=== PATIENT | female | born 1970 | race Caucasian/White ===

== ENCOUNTER 2024-05-17 16:50 | Inpatient (IN) | payer BC, SELFPAY ==
[2024-05-17] VITALS (16 sets, daily range): BP systolic 78–150; BP diastolic 67–110; BMI 25.4
--- NOTE | 2024-05-17 12:49 | ED.GENMED ---
History of Present Illness
General
Chief Complaint: Heart Rate Problem
Time Seen by Provider: 05/17/24 12:49
History of Present Illness
History of Present Illness:
TIME OF INITIAL ENCOUNTER:
HPI: Patient presents due to shortness of breath and palpitations started last night. Approximately 1 to 2 weeks ago, she had URI/flulike illness. Last evening she developed abrupt onset shortness of breath and palpitations. She went to see PMD
today and was found to be in rapid A-fib so was sent here for further evaluation and management. She has no history of A-fib. She denies any significant cough and cold medications.
EXAM:
GENERAL: Well appearing in no distress
HEENT: Moist oral mucosa
CARDIOVASCULAR: No murmurs, tachycardic heart rate, irregular rhythm, No chest wall tenderness
PULMONARY: No respiratory distress, breath sounds are clear and equal
ABDOMEN: Soft with no peritoneal signs, no tenderness
NEUROLOGIC: Excellent strength all extremities, no coordination deficits
PSYCHIATRIC: Appropriate mental status, normal insight and judgement
EXTREMITIES: Nontender, no edema, moves all extremities equally
SKIN: No rash, no lesions
NUMBER AND COMPLEXITY OF PROBLEMS ADDRESSED AT THE ENCOUNTER
� Chronic conditions affecting care: She is a smoker,
� Acute Exacerbation and/or Progression of Chronic Illness: This is an acute problem
� Differential Diagnosis includes: Viral syndrome, new onset rapid A-fib, thyroid disease, electrolyte abnormality, PE less likely
AMOUNT AND/OR COMPLEXITY OF DATA TO BE REVIEWED AND ANALYZED
� I performed an independent evaluation of and my interpretation is:
EKG: A-fib 156, normal axis, nonspecific ST abnormality in 2022, EKG was sinus rate of 78
CT: CT reviewed, I see no evidence of central PE
X-rays:
Laboratory Studies: White count 9.2, hemoglobin 15.6, troponin negative, electrolytes normal, COVID flu negative
Other:
� Review of other/old records: I reviewed records, the patient has been here in the past related to ureteral stones
� Clinical information was obtained by an independent historian: I spoke to at bedside
� Prescriptions/Medications Considered but not given:
� Further testing considered but not performed:
RISK OF COMPLICATIONS AND/OR MORBIDITY OR MORTALITY OF PATIENT MANAGEMENT
� Social determinants of health affecting care: Lives at home
� Discussion with other providers: I discussed case with Dr. Osorio who recommends against cardioversion in the Emergency Department. Dr. Quezada for admission
� Escalation of care including admission/observation vs risk of discharge considered: The patient arrived with heart rates in the 150s to 170s and new onset A-fib. She was given Cardizem bolus and then drip. Heart rate did
improve to the low 100s. D-dimer was obtained and was elevated�will send for CTA.
ANY OTHER UPDATES:
3 PM: Overall heart rate has improved. The patient appears comfortable.
Past History
Past History
ED Past Medical History: Other (Kidney stones)
ED Past Surgical History: Cholecystectomy, Gynecological (partial hysterectomy) and Orthopedic
Social History
Tobacco: Non-smoker
Alcohol: Occasional
Drug: None
Personal:
Living: with family
Employment: Employed ([employer])
Phy Exam
Physical Exam
Physical Exam:
See HPI
Course
Orders/Labs/Results
Orders:
Orders
05/17/24 12:39
Electrocardiogram (*1) Urgent
Reason for Study: Atrial Fibrillation
EKG- Treatment ONCE
05/17/24 12:57
Basic Metabolic Panel Urgent
COVID-19 Antigen Urgent
Source: Nasal Swab
Complete Blood Count/With Diff Urgent
Glycohemoglobin (HgbA1c) Urgent
Magnesium Urgent
TSH Reflex To Free T4 Urgent
Troponin I Urgent
Influenza A+B Rapid Molecular Urgent
PRAFUL Source: Nasal Swab
Specimen Description:
05/17/24 13:03
D-Dimer Urgent
05/17/24 13:39
Diltiazem HCl [Cardizem] 10 mg IV NOW STA
05/17/24 13:45
Diltiazem 125 mg/125 ml Nss [Cardizem] 125 mg in 125 ml IV PER PROTOCOL
Initial dose in mg/hr, then titrate:: 5
Titrate to keep:: Heart rate 80-100 bpm
Titrate by mg/hr:: 5 mg/hr
Frequency of titrations (minutes):: 15
Maximum dose in mg/hr:: 15
05/17/24 14:24
CT Chest PE Study Urgent
Comment:
Reason For Exam: sob high ddimer
05/17/24 Dinner
Cholesterol Lowering
At Your Request: Full Participation
Does patient need a safe tray?: No
Cholesterol Lowering: Sodium, 2 Gram
05/17/24 15:57
Admit/Transfer Patient As Directed
Co-Sign Provider:
Level of Care: Inpatient admission
Assign to:: IVU
Physician / Group: Noé Quezada
Diagnosis: new onset atrial fibrillation
Reason for Hospitalization: new onset atrial fibrillation
Expected length of stay greater than two midnights?: Yes
ELOS- Estimated Length of Stay in days: 3
I certify the patient meets the requirements for IP care: Yes
PRN Pain Medication Management As Directed
May give lesser potent ordered pain med per pt: Yes
preference::
Protocol:: Medication orders for pain may be administered in a
manner that supports deferring to patient preference
when the pt is:
- Requesting an ordered lesser potent pain medication.
Least to most potent pain medications are defined
as: acetaminophen < NSAID < tramadol < opioids
(morphine, oxycodone, hydromorphone).
- Requesting a lesser dose of the same medication IF
ORDERED.
- Requesting a less intrusive route of administration
if both routes are prescribed by the provider (PO <
IV).
05/17/24 15:58
Code Status As Directed
Resuscitation Status: Full Code
05/17/24 17:57
CARDIOLOGY CONSULT Routine
Consulting Provider: Jamshid Osorio
Was physician already notified: Yes
Activity As Directed
Activity Level: Ambulate
INT (Intravenous Needle Therapy) As Directed
Comment: maintain peripheral IV access
Intake/ Output As Directed
Frequency: Per unit guidelines
Vital Signs As Directed
Frequency: q4h
Weight As Directed
Frequency: Once
DX Deep Vein Thrombosis Video Routine
05/18/24 05:40
Cardiovascular Evaluation IN AM
Complete Blood Count/No Diff IN AM
Comprehensive Metabolic Panel IN AM
05/18/24 06:00
Echo 2D MMode Color/Doppler IN AM
Reason for Study: AFIB with RVR
Comment: tomorrow, once HR better controlled
Abnormal Lab Results
05/17/24 05/17/24
12:57 13:03
MCH 31.3 H pg
(27.0-31.0)
D-Dimer 1.05 H ug/mlFEU
(0.00-0.50)
Chloride 108 H mmol/L
(98-107)
Glucose 100 H mg/dl
(70-99)
Hemoglobin A1c 5.8 H %
(4.0-5.6)
05/17/24 12:57
05/17/24 12:57
Vital Signs
Pulse: 116
Initial and Last Documented VS:
Initial Vital Signs
Temp Pulse Resp BP Pulse Ox
36.6 C 88 20 145/104 97
05/17/24 12:45 05/17/24 12:45 05/17/24 12:45 05/17/24 12:45 05/17/24 12:45
Last Documented Vital Signs
Temp Pulse Resp BP Pulse Ox
36.7 C 110 18 136/99 96
05/19/24 03:43 05/19/24 03:43 05/19/24 03:43 05/19/24 03:43 05/19/24 03:43
*Critical Care Note
Total Time (30-74mins, 75-104mins- exclusive of procedures): Not Applicable
ED Attending Note
-
Portions of this chart may have been created with voice recognition software.� Occasional wrong word or��sound alike� substitutions may have occurred due to the inherent limitations of voice recognition software.
Discharge Plan
Departure
Patient Disposition: Admit
Date of Disposition: 05/17/24
Time of Disposition: 15:17
Presentation/result/management discussed w/ accepting MD/DO: Hospitalist
Discharge Problem:
Atrial fibrillation with RVR
Interventions
Interventions:
*Risk Screen - Suicide Last Done: 05/17/24 12:45
*General Assessment Last Done: 05/17/24 12:45
*Neglect/Abuse Screening Last Done: 05/17/24 12:45
ED- Fall Risk Assessment Last Done: 05/17/24 21:17
*ED COVID-19 Vaccine History Last Done: 05/17/24 12:45
*Nursing Disposition Last Done: 05/18/24 17:11
ED- Cardiac Assessment Last Done: 05/17/24 21:17
ED- Pulmonary Assessment Last Done: 05/17/24 13:07
Discharge Date and Time
Discharge Date/Time: 05/18/24 17:12
[2024-05-17 13:21] LABS: % Basophils 0.7 % (0-2); % Eosinophils 1.3 % (0-6); % Immature Granulocytes 0.3 % (0-0.5); % Neutrophils 60.7 % (42.2-75.2); Absolute Basophils 0.1 10^3/uL (0-0.2); Absolute Eosinophils 0.1 10^3/uL (0-0.7); Absolute Lymphocytes 2.9 10^3/uL (1.2-3.4); Absolute Monocytes 0.5 10^3/uL (0.1-0.6); Absolute Neutrophils 5.6 10^3/uL (1.4-6.5); Hematocrit 45.9 % (37.0-47.0); Hemoglobin 15.6 g/dL (12.0-16.0); Mean Corpuscular Hgb 31.3 pg (27.0-31.0); Mean Corpuscular Volume 92.2 fL (81.0-99.0); Mean Platelet Volume 9.2 fL (7.4-10.4); Nucleated Red Blood Cells % 0 %; Platelet Count 277 10^3/uL (130-400); Red Blood Cell Count 4.98 10^6/uL (4.20-5.40); Red Cell Dist. Width 12.3 % (11.5-14.5); White Blood Cell Count 9.2 10^3/uL (4.8-10.8)
[2024-05-17 13:26] LABS: COVID-19 Antigen Negative (Negative)
[2024-05-17 13:27] LABS: Blood Urea Nitrogen 9 mg/dl (7-17); Calcium 9.7 mg/dl (8.4-10.2); Carbon Dioxide 22 mmol/L (22-30); Chloride 108 mmol/L (98-107); Glucose 100 mg/dl (70-99); Potassium 4.2 mmol/L (3.5-5.1); Sodium 140 mmol/L (135-145); eGFR > 60.00
[2024-05-17 13:31] LABS: D-Dimer 1.05 ug/mlFEU (0.00-0.50)
[2024-05-17 13:38] LABS: Troponin I < 0.012 ng/ml
[2024-05-17] MEDS: CARDIZEM 125 IV (13:52)
[2024-05-17] MEDS: CARDIZEM 10 MG IV (13:52)
--- NOTE | 2024-05-17 15:01 | CON.CAR ---
Addendum entered and electronically signed by Jamshid Osorio MD 05/17/24 16:41:
I saw and examined the patient.
The ADMINISTRATIVE LAW JUDGE's note was reviewed and I agree with the note.
53-year-old woman with history of smoking who had URI 2 weeks ago which included cough and fever. Symptoms improved and she was able to go back to work but then she felt more fatigued on Wednesday and Wednesday. She noticed that she was short of
breath rolling over in bed and her heart was racing and came to the ER and was noted to be in A-fib. Exact time of onset is unclear. Unclear if A-fib contributed to some of her complaints of increased fatigue
Chest CT with no evidence of pulmonary embolism no significant parenchymal airspace disease
Atrial fibrillation.
-New onset
-Duration unclear
-[id number] 1-2. Patient with elevated blood pressure in ER. Unclear if she really has a diagnosis of hypertension will need to monitor her blood pressures.
-Eliquis
-If patient remains in atrial fibrillation then would consider ANNE cardioversion in a.m.
.
History of smoking. Patient states that she had her last cigarette today and she is going to quit
.
Elevated blood pressure. No prior history of hypertension. Continue to monitor.
.
Fatigue. May be related to A-fib. Would consider other causes.
.
Recent URI initially started 2 weeks ago and then improved. No fever. COVID and influenza negative
Original Note:
Consultation
Consultation Request
Date/Time Consultation Requested: 05/17/24 1328
Date/Time Consultation Performed: 05/17/24 1430
Requesting Provider: Dr. Barber
Performing Provider: Becky AVALOS for Dr. Osorio
Reason for Consultation: AFIB with RVR
Medical History
-
Chief Complaint: SOB and palpitations
History of Present Illness:
53 y/o female with hx tobacco abuse who is here for evaluation from her PCP office for AFIB with RVR. Briefly, she had fever and cough about 2 weeks ago. Last night she noted that she was SOB and had palpitations, but isn't sure that she has been
feeling normally over the past two weeks. She is currently on diltiazem drip to help with rate control. CT PE is pending since Ddimer is elevated. She is in no distress at the time of my assessment.
Past Medical History
Past Medical History: None
Social History
Tobacco: Smoker (1 PPD)
Personal:
Living: With Family
Family History
Family History: Reviewed & Not Pertinent
Allergies / Home Medications
Allergy/AdvReac Type Severity Reaction Status Date / Time
No Known Allergies Allergy Verified 05/17/24 12:48
�Medication �Instructions �Recorded �Confirmed �Type
No Meds [No Current Medications] 05/20/21 08/17/22 History
Review of Systems
-
History Source: Patient
All other systems: Negative unless noted
Constitutional: Fever
Respiratory: Cough and Trouble Breathing
Cardiac: Palpitations
Physical Exam
Vital Signs
Temp Pulse Resp BP Pulse Ox
97.8 F 116 24 146/110 97
05/17/24 12:45 05/17/24 14:53 05/17/24 13:07 05/17/24 13:02 05/17/24 13:07
Lab Results
05/17/24 12:57
05/17/24 12:57
Troponin I < 0.012 ng/ml 05/17/24 12:57
Physical Exam
General: Well Developed, Well Nourished and No Apparent Distress
HEENT: Normocephalic and Anicteric
Respiratory: Clear and Non Labored Respirations
Cardiac: Irregular Rhythm
Musculoskeletal: No Edema
Skin: Warm and Dry
Neuro: AO x 3
Psych: Calm
Impression / Plan
-
AFIB with RVR:
-new diagnosis and it is not clear to me when onset was
-agree with IV diltiazem, which requires intensive monitoring
-[id number] score is 1 for female. Elevated BP noted in ER, but reports her BP is not typically elevated. ER readings may also be erroneous in setting of AFIB with RVR and automatic cuff. Start AC with Eliquis (5 mg PO BID) if we clarify there is
no PE.
-will obtain echo when HR under better control
-consider ANNE/CV, though recent URI with continued coughing, so will see what CT scan shows- may be better done as OP
-TSH is pending. Sleep study as OP- she snores.
URI symptoms:
-continued cough, recent fever. COVID and flu negative.
-CT chest pending
Elevated D-Dimer:
-CT PE pending- this diagnosis is threat to life
Smoker:
-1 PPD
-we discussed recommendation for cessation and she is agreeable
Data Reviewed
-
EKG: Tracing Personally Visualized and interpreted (AFIB with RVR)
CT Scan: Other (CT scan pending- will review when results available)
Medical Tests (Nuc Med, Echo etc): Other (echo ordered)
Labs: Labs Reviewed by me
--- NOTE | 2024-05-17 15:19 | HPS.HSE ---
Family Physician
-
Family Physician: BAILEY Singh
Chief Complaint
-
palpitations
History of Present Illness
Patient is a 53-year-old female with no significant past medical history who presented to [facility] ED for evaluation of palpitations. Patient reports that last night she was in bed sleeping and when she turned over she woke up with
significant shortness of breath associated with palpitations. Patient states 2 weeks ago she had URI symptoms with fever, cough and congestion for a few days, cough has lingered, improved and this past Wednesday started getting worse again, no fevers
this time. This morning she called and made appointment with primary care where EKG showed atrial fibrillation and referred her to ED for evaluation and treatment. Patient denies any recent dizziness, fever, chills, chest pain, nausea, vomiting,
constipation, diarrhea or urinary symptoms. Patient is an everyday smoker for the past 30 years.
Medical History
Past Medical History
Past Medical History: Reports None
Past Surgical History: Reports Other
Additional Past Surgical History:
partial hysterectomy (2013)
tonsillectomy (1979)
cholecystectomy (2016)
fatty tumor extraction from arm and legs (2019)
Social History
Tobacco: Smoker (1 pack per day for 30 years, 30 pack year history )
Alcohol: Occasional (rare )
Drug: Marijuana (smokes and edibles occasionally )
Living: With Family
Employment: Employed
Family History
Family History: Not pertinent
Allergies / Home Medications
Allergies reflects when Allergies were last updated in [employer].
Home Medications with original date entered in [employer]
Allergy/Medication List:
Allergies
Allergy/AdvReac Type Severity Reaction Status Date / Time
No Known Allergies Allergy Verified 05/17/24 12:48
Home Medications
diphenhydramine HCl 25 mg tablet (Sleep Aid (diphenhydramine)) 25 mg PO HS 05/17/24
Review of Systems
-
History Source: Patient
Constitutional: Reports No Symptoms
EENT: Reports No Symptoms
Respiratory: Reports Trouble Breathing (shortness of breath)
Cardiac: Reports Palpitations
Abdomen/GI: Reports No Symptoms
: Reports No Symptoms
Musculoskeletal: Reports No Symptoms
Skin: Reports No Symptoms
Neurological: Reports No Symptoms
Endocrine: Reports No Symptoms
Hematologic/Lymphatic: Reports No Symptoms
Psych: Reports No Symptoms
Physical Exam
Vital Signs
Vital Signs
Temp Pulse Resp BP Pulse Ox
97.8 F 116 24 146/110 97
05/17/24 12:45 05/17/24 14:53 05/17/24 13:07 05/17/24 13:02 05/17/24 13:07
Physical Exam
General: Well Developed, Well Nourished, No Apparent Distress, Comfortable and Conversant
HEENT: NormoCephalic, Moist mucous membranes, Atraumatic, [place] Conjunctivae, Nose Appears Normal and Ears Appear Normal
Respiratory: Clear, Non Labored Respirations and Other (moist cough )
Cardiac: S1/S2, Irregular Rhythm and Tachycardia; No Murmur, Rub or Gallop
Breast: Deferred by me
GI: Soft, Non Tender, Non Distended and Normal Bowel Sounds; No Organomegaly
Rectal: Deferred by Provider
Genito-urinary: Deferred by me
Musculoskeletal: No Clubbing, No Cyanosis, No Edema and Normal Gait & Station
Skin: Warm and IV/Catheter Site; No Rash
Neuro: Awake, Alert, AO x 3 and Nonfocal/grossly intact
Psych: Calm and Intact Judgment/Insight
Laboratory Results
-
05/17/24 12:57
05/17/24 12:57
Laboratory Results
Troponin I < 0.012 ng/ml 05/17/24 12:57
Data Reviewed
-
CT Scan: Report Reviewed by me
Medical Tests (Nuc Med, Echo, EKG etc): Report Reviewed by me (EKG: Critical Test Result: High HR ATRIAL FIBRILLATION WITH RAPID VENTRICULAR RESPONSE ABNORMAL ECG)
Lab Data: Labs Reviewed by me
Impression/Plan
-
IMPRESSION/PLAN:
#new onset atrial fibrillation
EKG: Critical Test Result: High HR
ATRIAL FIBRILLATION WITH RAPID VENTRICULAR RESPONSE
ABNORMAL ECG
Chest CT: No acute disease of the chest. No evidence of pulmonary metastases.
Minimal pulmonary fibrosis.
- Admit to IVU
- Consult Cardiology
- Cardizem gtt
- Eliquis if negative for PE
#nicotine dependency
30 pack year history
- encourage cessation
Code status: Full code
DVT prophylaxis: Eliquis
[2024-05-17 15:44] LABS: TSH Reflex To Free T4 1.03 uIU/ml (0.47-4.68)
--- NOTE | 2024-05-17 15:51 | W.PN.UPDATE ---
Update Note
Progress Note Update
This note serves as an addendum to the H&P by facility manager AAMIR
Karely Roach
HPI
53F current heavy smoker , no significant PMHX seen at ER;
- sent to ER from PCP office
- fever and cough 2 weeks ago
- Last nightnew onset of SOB and had palpitations,
- Evaluated at PCP noted for AFIB with RVR sent to ER t
- At ER, started diltiazem gtt to control rate control.
- Noted elevated D Dimer
- Pending reno report of CTC Chst PE protocl
- She denies any significant cough and cold medications.
Vital Signs
Temp Pulse Resp BP Pulse Ox
97.8 F 134 19 142/88 95
05/17/24 12:45 05/17/24 15:30 05/17/24 15:30 05/17/24 15:13 05/17/24 15:30
PE
General: No Apparent Distress
HEENT: Normocephalic and Anicteric
Respiratory: Clear and Non Labored Respirations
Cardiac: Irregular Rhythm
Musculoskeletal: No Edema
Skin: Warm and Dry
Neuro: AO x 3
Psych: Calm
Abnormal Lab Results
05/17/24 05/17/24
12:57 13:03
MCH 31.3 H
D-Dimer 1.05 H
Chloride 108 H
Glucose 100 H
Unremarkable CBC
Unremarkable CMP
D Dimer 1.05
NEG TPNI
Nl TSH
NEG Covid
NEG Flu A & B
EKG: Tracing Personally Visualized and interpreted (AFIB with RVR)
CT Scan: Other (pending)
ASSESSMENT & PLAN
New diagnosis of AFIB with RVR of unnown duration
- Nl TSH
- [id number] score is 1 for female.
- agree with Diltiazem gtt for titration
- agree with Eliquis 5 mg PO BID
- ECHO in AM when when HR has better controlled
URI symptoms: NEG Flu A & B, NEG Covid
- supportive care
Elevated D-Dimer:
- CT PE report pending
Nicotine use disorder
-1 PPD
- recommendation for cessation and she is agreeable
DVT Px: on Eliquis
Ful code
IVU
[2024-05-17] MEDS: TYLENOL 650 MG PO (17:53)
[2024-05-17] MEDS: ELIQUIS 5 MG PO (20:17)
[2024-05-18] VITALS (22 sets, daily range): BP systolic 97–144; BP diastolic 58–101; BMI 24.7
[2024-05-18 06:23] LABS: Hematocrit 41.6 % (37.0-47.0); Hemoglobin 14.2 g/dL (12.0-16.0); Mean Corp Hgb Conc. 34.1 g/dL (33.0-37.0); Mean Corpuscular Hgb 31.2 pg (27.0-31.0); Mean Corpuscular Volume 91.4 fL (81.0-99.0); Platelet Count 237 10^3/uL (130-400); Red Blood Cell Count 4.55 10^6/uL (4.20-5.40); Red Cell Dist. Width 12.4 % (11.5-14.5)
[2024-05-18 06:41] LABS: ALT (SGPT) 78 U/L (0-35); AST (SGOT) 51 U/L (14-36); Albumin 3.8 g/dl (3.5-5.0); Alkaline Phosphatase 130 U/L (38-126); Blood Urea Nitrogen 8 mg/dl (7-17); Calcium 9.4 mg/dl (8.4-10.2); Carbon Dioxide 24 mmol/L (22-30); Chloride 108 mmol/L (98-107); Estimated Creatinine Clearance 103 ml/min; Glucose 96 mg/dl (70-99); HDL Cholesterol 56 mg/dl; LDL Cholesterol, Calculated 47 mg/dl; Potassium 4.1 mmol/L (3.5-5.1); Sodium 138 mmol/L (135-145); Total Bilirubin 1.7 mg/dl (0.2-1.3); Total Cholesterol 123 mg/dl (50-199); Total Protein 6.1 g/dl (6.3-8.2); Triglyceride 100 mg/dl (10-149); Very Low Density Lipoprotein 20 mg/dl (0-30); eGFR > 60.00
[2024-05-18] MEDS: ELIQUIS 5 MG PO ×2 (08:11→20:19)
[2024-05-18] MEDS: TYLENOL 650 MG PO (08:11)
[2024-05-18 09:08] LABS: Glycohemoglobin (HgbA1c) 5.8 % (4.0-5.6)
--- NOTE | 2024-05-18 09:09 | W.PN.CD ---
Today's Communication / Plan
-
Patient still with cough but otherwise comfortable overnight. Remains in A-fib.
-Continue anticoagulation with Eliquis
-Echocardiogram
-No acute parenchymal abnormalities reported on CT although mild pulmonary fibrosis on report. Defer to primary team regarding optimization of pulmonary issues and cough.
-Patient may have component of active reactive airway disease and is currently coughing. Would prefer to see some additional improvement in pulmonary issues prior to doing ANNE
-Change IV Cardizem to oral to provide additional rate control and continue with anticoagulation as we assess best timing for cardioversion in the future
Impression / Plan
-
AFIB with RVR:
-new diagnosis and it is not clear to me when onset was
-agree with IV diltiazem, which requires intensive monitoring
-[id number] score is 1 for female. Elevated BP noted in ER, but reports her BP is not typically elevated. ER readings may also be erroneous in setting of AFIB with RVR and automatic cuff. Start AC with Eliquis (5 mg PO BID) if we clarify there is
no PE.
-will obtain echo when HR under better control
-consider ANNE/CV, though recent URI with continued coughing, so will see what CT scan shows- may be better done as OP
-TSH is pending. Sleep study as OP- she snores.
URI symptoms:
-continued cough, recent fever. COVID and flu negative.
-Treatment per primary team
-Mild pulmonary fibrosis on CT but no other parenchymal abnormalities reported.
Elevated D-Dimer:
-CT Negative for pulmonary embolism
Smoker:
-1 PPD
-we discussed recommendation for cessation and she is agreeable
Physical Exam
Vital Signs/Labs
Vital Signs
Temp Pulse Resp BP Pulse Ox
98.1 F 82 23 128/91 92
05/18/24 08:15 05/18/24 09:00 05/18/24 09:00 05/18/24 09:00 05/18/24 09:00
05/17/24 05/18/24 05/19/24
06:59 06:59 06:59
Actual Weight 71.214 kg
05/18/24 05:40
05/18/24 05:40
Magnesium 2.0 mg/dl (1.6-2.3) 05/17/24 12:57
Triglycerides 100 mg/dl (10-149) 05/18/24 05:40
LDL Cholesterol, Calc 47 mg/dl 05/18/24 05:40
VLDL Cholesterol, Calc 20 mg/dl (0-30) 05/18/24 05:40
HDL Cholesterol 56 mg/dl 05/18/24 05:40
LAB Results
05/17/24
12:57
Troponin I < 0.012
Physical Exam
Constitutional: No acute distress
Cardiovascular: Rhythm/rate is irregular
Respiratory: Other (Coughing with deep inspiration. Had coughing spells during exam)
GI: Soft
Neuro/Psych: Alert
Data Reviewed
-
Date of Service: May 18, 2024
Medical Decision Making: Reviewed Test Results
Echo: Report Reviewed by me
Medical Tests (PFT, Pathology etc): Report Reviewed by me
[2024-05-18] MEDS: CARDIZEM 30 MG PO ×4 (10:08→21:19)
[2024-05-18] MEDS: MUCINEX 1200 MG PO ×2 (10:24→20:19)
[2024-05-18] MEDS: TESSALON PERLES 200 MG PO ×2 (10:24→22:53)
[2024-05-18] MEDS: PULMICORT 0.25 MG INH ×2 (11:26→19:16)
--- NOTE | 2024-05-18 12:20 | W.PN.HOSP.TC ---
Today's Communication/Plan
-
Monitor vitals
See plan
Remains in A-fib, continue with Cardizem
Continue Eliquis
manager of case for cost for Eliquis
Abdominal ultrasound
Trial of Pulmicort
Cough meds
Assessment / Plan
Assessment / Plan
General: Well Developed, Well Nourished, No Apparent Distress, Comfortable and Conversant
HEENT: NormoCephalic, Moist mucous membranes, Atraumatic, [place] Conjunctivae
Respiratory: Clear, Non Labored Respirations and Other (moist cough )
Cardiac: S1/S2, Irregular Rhythm and Tachycardia
GI: Soft, Non Tender, Non Distended and Normal Bowel Sounds
Musculoskeletal:No Edema
Neuro: Awake, Alert, AO x 3 and Nonfocal/grossly intact
Psych: Calm and Intact Judgment/Insight
new onset atrial fibrillation with RVR
EKG: Critical Test Result: High HR
ATRIAL FIBRILLATION WITH RAPID VENTRICULAR RESPONSE
ABNORMAL ECG
Chest CT: No acute disease of the chest. No evidence of pulmonary metastases.
Minimal pulmonary fibrosis.
Continue with Cardizem drip
No plans for cardioversion today, discussed with cardiology. N.p.o. past midnight for possible cardioversion tomorrow
Cardiology following
Transition to p.o. Cardizem
Started Eliquis
Cough
CT chest with possible pulmonary fibrosis
Patient has prolonged history of smoking, does not use any inhalers or nebulizer at home. Does not report to have dyspnea on exertion
She does have this cough for about 2 weeks which was started after having a upper respiratory infection. She did not see any physician regarding that. At that time she did had fever/chills.
I suspect cough could be likely secondary to possible underlying lung disease and component of post upper respiratory infection.
Will start cough medications. Trial of Pulmicort.
Patient to follow-up with pulmonary outpatient
Elevated LFTs
Abdominal ultrasound without any acute abnormality
Monitor
#nicotine dependency
30 pack year history
- encourage cessation
Code status: Full code
DVT prophylaxis: Eliquis
Anticipated Discharge: 24 - 48 hours
Subjective/Interval History
-
Date of Service: May 18, 2024
Denies chest pain
Objective Data
-
Labs:
Laboratory Results
05/18/24
05:40
WBC 7.0
Hgb 14.2
Hct 41.6
Plt Count 237
Sodium 138
Potassium 4.1
Chloride 108 H
Carbon Dioxide 24
BUN 8
Creatinine 0.6
Glucose 96
Calcium 9.4
Total Bilirubin 1.7 H
AST 51 H
ALT 78 H
Alkaline Phosphatase 130 H
Vital Signs:
Vital Signs
Temp Pulse Resp BP Pulse Ox
98.1 F 102 15 139/97 95
05/18/24 08:15 05/18/24 11:31 05/18/24 11:31 05/18/24 10:08 05/18/24 11:31
I&O
05/17/24 05/18/24 05/19/24
06:59 06:59 06:59
Intake Total 720 / 720
Balance 720 / 720
--- NOTE | 2024-05-18 13:41 | CM ---
CM following re: discharge planning.
CM consulted to check the [facility] for Eliquis 5mg BID. Per [facility] pharmacy there is $25.00 co-pay for Eliquis for 30 day supply
Reviewed pt's chart, met with pt.
Pt is a 53 year old female, admitted with primary dx of new onset atrial fibrillation with RVR. pt is aware she is awaiting for a bed in IVU.
Pt reports she lives with , son and father in law in a 2SH, has 2 supportive children. pt described herself as independent in all areas [employer], drives, works.
Pt is aware of Eliquis co-pay, expressed her agreement and she stated it is surprisingly affordable. Free 30 days coupon with $10.00 monthly coupon provided to the pt.
PCP: Gregor Mccracken
Pharmacy: [facility] [place]
D/C plan: home with anticipated no needs.family to transport at discharger.
CM will follow with discharge plan updates as hospitalization progresses
--- NOTE | 2024-05-18 17:30 | PTCARENOTE ---
Pt. arrived to unit via wheelchair and ambulated to bed. Report discussed with previous RN. Pt. resting comfortably in bed and oriented to unit.
[2024-05-18 21:42] LABS: Glucose - Point of Care 100 mg/dl (70-99)
[2024-05-19 03:43] VITALS: BP 136/99
[2024-05-19 05:43] LABS: Hematocrit 45.4 % (37.0-47.0); Hemoglobin 15.5 g/dL (12.0-16.0); Mean Corp Hgb Conc. 34.1 g/dL (33.0-37.0); Mean Corpuscular Hgb 31.5 pg (27.0-31.0); Mean Corpuscular Volume 92.3 fL (81.0-99.0); Mean Platelet Volume 9.1 fL (7.4-10.4); Platelet Count 236 10^3/uL (130-400); Red Blood Cell Count 4.92 10^6/uL (4.20-5.40); Red Cell Dist. Width 12.3 % (11.5-14.5); White Blood Cell Count 6.7 10^3/uL (4.8-10.8)
[2024-05-19 06:08] LABS: Blood Urea Nitrogen 12 mg/dl (7-17); Carbon Dioxide 24 mmol/L (22-30); Chloride 108 mmol/L (98-107); Estimated Creatinine Clearance 103 ml/min; Glucose 104 mg/dl (70-99); Sodium 139 mmol/L (135-145); eGFR > 60.00
[2024-05-19] MEDS: PULMICORT 0.25 MG INH (07:07)
[2024-05-19 07:37] VITALS: BP 146/90
[2024-05-19] MEDS: ELIQUIS 5 MG PO (08:06)
[2024-05-19] MEDS: CARDIZEM 30 MG PO (08:06)
[2024-05-19] MEDS: MUCINEX 1200 MG PO (08:07)
[2024-05-19 08:48] LABS: ALT (SGPT) 69 U/L (0-35); AST (SGOT) 34 U/L (14-36); Albumin 3.9 g/dl (3.5-5.0); Alkaline Phosphatase 144 U/L (38-126); Direct Bilirubin 0.3 mg/dl (0.0-0.4); Total Bilirubin 1.2 mg/dl (0.2-1.3); Total Protein 6.3 g/dl (6.3-8.2)
--- NOTE | 2024-05-19 09:56 | W.PN.CD ---
Today's Communication / Plan
-
ANNE/DCCV today
Dilt 180 mg on d/c
Eliquis 5 mg bid
Follow up in office will be arranged; OK to d/c from cardiology perspective
Impression / Plan
-
AFIB with RVR:
-new diagnosis and it is not clear to me when onset was
-On diltiazem PO 30 qid, will convert to ER after DCCV
-[id number] score is 1 for female. Elevated BP noted in ER, but reports her BP is not typically elevated. ER readings may also be erroneous in setting of AFIB with RVR and automatic cuff. Start AC with Eliquis (5 mg PO BID) if we clarify there is
no PE.
-ANNE DCCV today, 30 days of Eliquis
-TSH is pending. Sleep study as OP- she snores.
URI symptoms: improved
-continued cough, recent fever. COVID and flu negative.
-Treatment per primary team
-Mild pulmonary fibrosis on CT but no other parenchymal abnormalities reported.
Elevated D-Dimer:
-CT Negative for pulmonary embolism
Smoker:
-1 PPD
-we discussed recommendation for cessation and she is agreeable
Subjective: Cough much improved, feels much better
Physical Exam
Vital Signs/Labs
Vital Signs
Temp Pulse Resp BP Pulse Ox
97.9 F 102 24 146/90 98
05/19/24 07:37 05/19/24 08:06 05/19/24 07:37 05/19/24 08:06 05/19/24 09:35
05/18/24 05/19/24 05/20/24
06:59 06:59 06:59
Actual Weight 157 lb 153 lb
05/19/24 05:16
05/19/24 05:16
Magnesium 2.0 mg/dl (1.6-2.3) 05/17/24 12:57
Triglycerides 100 mg/dl (10-149) 05/18/24 05:40
LDL Cholesterol, Calc 47 mg/dl 05/18/24 05:40
VLDL Cholesterol, Calc 20 mg/dl (0-30) 05/18/24 05:40
HDL Cholesterol 56 mg/dl 05/18/24 05:40
LAB Results
05/17/24
12:57
Troponin I < 0.012
Physical Exam
Constitutional: No acute distress and Comfortable
EENT: Anicteric
Cardiovascular: Pedal edema is absent and Rhythm/rate is irregular
Respiratory: Respiratory effort normal and Lungs clear to auscul.
GI: Soft
Neuro/Psych: AO x 3
Data Reviewed
-
Date of Service: May 19, 2024
EKG: Tracing Personally Visualized and interpreted (af)
Echo: Tracing Personally Visualized and interpreted and Report Reviewed by me
Labs: Labs Reviewed by me
--- NOTE | 2024-05-19 10:13 | W.PN.HOSP.TC ---
Addendum entered and electronically signed by Niranjan Winchester MD 05/19/24 12:48:
Patient has successful cardioversion. Discussed with cardiology. Patient is currently feeling better. Will discharge patient on p.o. Cardizem and Eliquis. Patient will follow-up with cardiology outpatient
Time of discharge 37 minutes
Original Note:
Today's Communication/Plan
-
Monitor vital signs see plan
Currently on p.o. Cardizem, heart rate still elevated
Plan for cardioversion per cardiology
Continue with Pulmicort for now,xoponex prn
Monitor LFTs
Hopeful DC next 24 hours if continues to improve
Assessment / Plan
Assessment / Plan
General: Well Developed, Well Nourished, No Apparent Distress, Comfortable and Conversant
HEENT: NormoCephalic, Moist mucous membranes, Atraumatic, [place] Conjunctivae
Respiratory: Clear, Non Labored Respirations
Cardiac: S1/S2, Irregular Rhythm and Tachycardia
GI: Soft, Non Tender, Non Distended and Normal Bowel Sounds
Musculoskeletal:No Edema
Neuro: Awake, Alert, AO x 3 and Nonfocal/grossly intact
Psych: Calm and Intact Judgment/Insight
new onset atrial fibrillation with RVR
Chest CT: No acute disease of the chest. No evidence of pulmonary metastases.
Minimal pulmonary fibrosis.
Now on p.o. Cardizem, however remains in A-fib and heart rate elevated at times
N.p.o. currently, defer cardioversion to cardiology.
Echo 05/18 with EF 55%
Cardiology following
p.o. Cardizem
Started Eliquis
TSH wnl
Cough
CT chest with possible pulmonary fibrosis
Patient has prolonged history of smoking, does not use any inhalers or nebulizer at home. Does not report to have dyspnea on exertion
She does have this cough for about 2 weeks which was started after having a upper respiratory infection. She did not see any physician regarding that. At that time she did had fever/chills.
I suspect cough could be likely secondary to possible underlying lung disease and component of post upper respiratory infection.
Will start cough medications. Trial of Pulmicort,If improved then likely can be transitioned to LABA/ICS as I do believe patient likely has lung disease given her prolonged history of smoking and her symptoms.
Patient to follow-up with pulmonary outpatient for official PFTs
Elevated LFTs
Abdominal ultrasound without any acute abnormality
Monitor
#nicotine dependency
30 pack year history
- encourage cessation
Code status: Full code
DVT prophylaxis: Eliquis
Anticipated Discharge: Within 24 hours
Subjective/Interval History
-
Date of Service: May 19, 2024
Denies chest pain, remains in A-fib
Objective Data
-
Labs:
Laboratory Results
05/19/24 05/19/24
05:16 07:36
WBC 6.7
Hgb 15.5
Hct 45.4
Plt Count 236
Sodium 139
Potassium 5.0
Chloride 108 H
Carbon Dioxide 24
BUN 12
Creatinine 0.6
Glucose 104 H
Calcium 10.0
Total Bilirubin 1.2 Cancelled
AST 34 Cancelled
ALT 69 H Cancelled
Alkaline Phosphatase 144 H Cancelled
Vital Signs:
Vital Signs
Temp Pulse Resp BP Pulse Ox
97.9 F 102 24 146/90 98
05/19/24 07:37 05/19/24 08:06 05/19/24 07:37 05/19/24 08:06 05/19/24 09:35
I&O
05/18/24 05/19/24 05/20/24
06:59 06:59 06:59
Intake Total 720 / 720 240 / 240
Balance 720 / 720 240 / 240
--- NOTE | 2024-05-19 10:57 | ITS.CL.CARDI ---
Packing Machine Inspector - Cardioversion
Cardioversion
Procedure Report:
Date of Procedure: 05/19/24
Procedure: Cardioversion
Indication: Symptomatic atrial fibrillation
Performing Physician: Tray Sharpe MD
Technique: The patient was brought to the holding area. Signed informed consent was obtained. A time out was called and performed. The patient was anesthetized by the anesthesia service. Anticoagulation status was reviewed and appropriate. R2 pads
were placed anteriorly and posteriorly. A 200 J synchronized biphasic shock restored normal sinus rhythm without significant bradycardia. There were no complications.
Conclusion: Uncomplicated cardioversion from atrial fibrillation to sinus rhythm.
Recommendation: Routine post cardioversion care. Continue shelter anticoagulation.
--- NOTE | 2024-05-19 11:38 | PTCARENOTE ---
Received patient from cathodic protection technician s/p cardioversion. Pt NSR on campus monitor. Pox: 98% RA. Family at bedside. Pt denies pain/SOB. Call dyer within reach. Plan of care ongoing.
[2024-05-19 11:52] VITALS: BP 133/81
[2024-05-19] MEDS: CARDIZEM CD 180 MG PO (11:55)
--- NOTE | 2024-05-19 12:55 | W.DCSUMMARY ---
Discharge Summary
Discharge Data
Date of Admission: 05/17/24
Date of Discharge: 05/19/24
-
Pending Results: No
Hospital Course
53-year-old female with history of nicotine dependent came to the hospital with new onset atrial fibrillation with rapid ventricular rate. Patient was initially started on IV Cardizem which were later transitioned to p.o. Cardizem prior to
discharge. Patient was seen by cardiology on this hospitalization and she underwent cardioversion which converted her to normal sinus rhythm. She also had an echocardiogram which showed preserved EF of 55%. On admission patient also had a CT scan
of the chest which showed possibility of mild pulmonary fibrosis. Given patient long history of smoking, obstructive lung disease and interstitial lung disease was suspected. Patient instructed to follow-up closely with pulmonology outpatient for
PFTs. On admission she also had elevated LFTs for which she had abdominal ultrasound which did not show any acute abnormality. Since patient remained in normal sinus rhythm after cardioversion, she was then discharged home with instructions to
follow-up with all her physicians outpatient.
Discharge Plan
-
Patient Disposition: Home (Routine Discharge)
Discharge Diagnosis/Procedures: New onset atrial fibrillation with rapid ventricular rate
Suspected obstructive lung disease and interstitial lung disease
Elevated LFTs
Diet: As tolerated
Activity: As tolerated
Driving Restrictions: As prior to admission
Bathing Restrictions: None
Others Tests: Please follow-up with pulmonary physician for official pulmonary function test
Activity Restrictions/Additional Instructions:
Can return to work on , 05/25/2024
Referrals:
Nereida Edwards CRNP [Specified Professional Personl] - 06/12/24 3:00 pm
Fernando Hernández CRNP [Family Provider] - in less than 1 week
Dada Castillo MD [Active] - in one to two weeks
Prescriptions:
New
diltiazem HCl 180 mg Capsule,Extended Release 24hr
180 mg PO DAILY Qty: 30 0RF
Eliquis 5 mg Tablet
5 mg PO BID Qty: 60 0RF
guaifenesin 600 mg Tablet Extended Release 12hr
1,200 mg PO Q12 7 Days Qty: 28 0RF
albuterol sulfate 90 mcg/actuation HFA aerosol inhaler
2 puff inhalation Q6H PRN (Reason: shortness of breath or wheezing) Qty: 6.7 0RF
Continued
diphenhydramine HCl [Sleep Aid (diphenhydramine)] 25 mg Tablet
25 mg PO HS
Discharge Orders:
Discharge Patient (As Directed); Ordered 05/19/24
Ordered By: Niranjan Winchester
Discharge Date and Time
Discharge Date/Time: 05/19/24 14:29
Print Language: TAJIK
--- NOTE | 2024-05-19 14:24 | CM ---
MD entered order for discharge.
Spoke with pt and . Pt ready for discahrgehome.
Offered VN they declined
PLAN Home no needs
== END 2024-05-19 14:29 | disposition home or self-care (01) | DRG 309 ==
LOC: 3 WEST ACU 16:50
PROVIDERS: Internal Medicine Cardiovascular Disease; Nurse Practitioner Family; ADMITTING PHYSICIAN Internal Medicine; ATTENDING PHYSICIAN Internal Medicine; CONSULT PHYSICIAN Internal Medicine Cardiovascular Disease; EMERGENCY PHYSICIAN Emergency Medicine; FAMILY PHYSICIAN Nurse Practitioner Family
PROC: 5A2204Z Restoration of Cardiac Rhythm, Single (ICD-10-PCS; 2024-05-19)
PROC: B24BZZ4 Ultrasonography of Heart with Aorta, Transesophageal (ICD-10-PCS; 2024-05-19)
DX: I48.91 Unspecified atrial fibrillation (principal); J84.9 Interstitial pulmonary disease, unspecified; F17.210 Nicotine dependence, cigarettes, uncomplicated; Z11.52 Encounter for screening for COVID-19; J44.9 Chronic obstructive pulmonary disease, unspecified; R79.89 Other specified abnormal findings of blood chemistry; R05.9 Cough, unspecified
CPT/HCPCS: 71275; 76700; 80048; 80053; 80061; 82248; 82962; 83036; 83735; 84443; 84484; 85025; 85027; 85379; 87502; 87811; 92960; 93005; 93306; 93312; 93320; 93325; 94640; 96374; 99285; 99406; Q9967

== ENCOUNTER → 2024-07-27 12:58 | Outpatient (REF) | payer BC, SELFPAY | LOC: RAD 12:58 | PROVIDERS: ATTENDING PHYSICIAN Nurse Practitioner Family | DX: R74.8 Abnormal levels of other serum enzymes (principal); R10.11 Right upper quadrant pain | CPT/HCPCS: 74177; Q9967 ==

== ENCOUNTER → 2024-08-17 14:20 | Outpatient (REF) | payer BC, SELFPAY | LOC: HWWDC 14:20 | PROVIDERS: ATTENDING PHYSICIAN Nurse Practitioner Family | DX: Z12.31 Encounter for screening mammogram for malignant neoplasm of breast (principal) | CPT/HCPCS: 77063; 77067 ==